=== PATIENT | female | born 1990 | race Caucasian/White ===

== ENCOUNTER 2019-09-12 09:57 | Observation (INO) | payer OTHER, SELFPAY ==
--- NOTE | ~2019-09-12 | US_ITS ---
US OB limited 09/12/2019 13:21 Indication: Vaginal bleeding Procedure: Real-time obstetrical ultrasound using transabdominal technique Comparison: No prior studies for comparison. Findings: There is a single living intrauterine in vertex presentation. Placenta is left-si ded. No evidence for previa. Amniotic fluid is subjectively normal. heart rate is 141 BPM. Impression: 1: Single living intrauterine with heart rate of 141 BPM. 2: Left-sided placenta. The placenta is grossly normal, without suggestion of placenta abruption. H owever, ultrasound is not diagnostic of abruption since acute hemorrhage can be isoechoic to be place nta. Recommend clinical correlation. Reviewed, dictated and finalized at location A. Impression: 1: Single living intrauterine with heart rate of 141 BPM. 2: Left-sided placenta. The placenta is grossly normal, without suggestion of placenta abruption. However, ultrasound is not diagnostic of abruption since a cute hemorrhage can be isoechoic to be placenta. Recommend clinical correlatio n.
[2019-09-12 11:37] LABS: Basophils Percent Auto 0.5 % (0.2-1.2); Eosinophils Absolute Auto 0.1 K/mm3 (0-0.3); Eosinophils Percent Auto 0.8 % (0-4.4); Hematocrit 36.9 % (37.0-47.0); Hemoglobin 12.3 g/dL (12.0-15.0); Immature Granulocyte Absolute 0.03 K/mm3 (0.00-0.031); Immature Granulocyte Percent A 0.5 % (0-0.5); Immature Platelet Fraction Pct 17.1 % (0.9-11.2); Lymphocytes Absolute Auto 1.36 K/mm3 (0.9-3.2); Lymphocytes Percent Auto 21.8 % (18.3-44.2); Mean Corpuscular HGB Conc 33.3 g/dl (32-36); Mean Corpuscular Hemoglobin 31.5 pg (26-34); Mean Corpuscular Volume 94.6 fl (80-100); Mean Platelet Volume 13.3 fl (7.4-10.4); Monocytes Absolute Auto 0.5 K/mm3 (0.1-0.6); Monocytes Percent Auto 7.5 % (2.6-8.5); Neutrophils Absolute Auto 4.3 K/mm3 (1.3-6.7); Neutrophils Percent Auto 68.9 % (45.5-73.1); Platelet Count Result 83 k/mm3 (150-375); Red Cell Distribution Width 12.7 % (11.5-14.5); White Blood Count 6.2 K/mm3 (4.5-10.0)
[2019-09-12 11:40] VITALS: BMI 32.8
[2019-09-12 11:51] LABS: Alanine Aminotransferase 10 U/L (4-35); Albumin Level 3.1 g/dL (3.5-5.1); Alkaline Phosphatase 117 U/L (38-126); Aspartate Amino Transferase 19 U/L (14-36); Bilirubin,Total 0.5 mg/dL (0.2-1.3); Blood Urea Nitrogen 6 mg/dL (7-17); Carbon Dioxide 25 mmol/L (22-30); Chloride 106 mmol/L (98-107); Estimated CRCL calculation 125 ml/min; Estimated Glomerular Filt Rate > 60; Glucose 74 mg/dL (65-105); Potassium 4.4 mmol/L (3.4-5.0); Sodium 134 mmol/L (137-145); Uric Acid 3.6 mg/dL (2.5-7.5)
--- NOTE | 2019-09-12 13:11 | PC.NURSE ---
Pt taken to u/s per wheelchair
[2019-09-12 14:14] VITALS: BP 111/72; PULSE 74
[2019-09-12 14:30] VITALS: TEMP 37.6
[2019-09-12 15:00] VITALS: BP 104/50; PULSE 80
[2019-09-12 16:00] VITALS: BP 106/66; PULSE 100
[2019-09-12 16:02] VITALS: TEMP 37.1
--- NOTE | 2019-10-16 07:55 | PM.OBTRLD ---
OB - Triage/Final Diagnosis Evaluation Laboratory results: Laboratory Tests 09/12/19 09/12/19 11:30 11:30 WBC 6.2 RBC 3.90 L Hgb 12.3 Hct 36.9 L MCV 94.6 MCH 31.5 MCHC 33.3 RDW 12.7 Plt Count 83 L MPV 13.3 H Immature Gran % (Auto) 0.5 Neut % (Auto) 68.9 Lymph % (Auto) 21.8 [place] % (Auto) 7.5 Eos % (Auto) 0.8 Baso % (Auto) 0.5 Lymph # (Auto) 1.36 [place] # (Auto) 0.5 Eos # (Auto) 0.1 Baso # (Auto) 0.0 Abs Immat Gran (auto) 0.03 Absolute Neuts (auto) 4.3 Absolute Nucleated RBC 0.0 Nucleated RBC % 0.0 % Immature Plt Fraction 17.1 H Sodium 134 L Potassium 4.4 Chloride 106 Carbon Dioxide 25 BUN 6 L Creatinine 0.70 Estim Creat Clear Calc 125 Estimated GFR > 60 Glucose 74 Uric Acid 3.6 Calcium 9.0 Total Bilirubin 0.5 AST 19 ALT 10 Alkaline Phosphatase 117 Total Protein 6.0 L Albumin 3.1 L Final Diagnosis (1) Bleeding in early : Code(s): O20.9 - Hemorrhage in early , unspecified Status: Acute
== END 2019-09-12 16:15 | disposition home or self-care (01) ==
PROVIDERS: Advanced Practice Midwife; Admitting Provider Obstetrics & Gynecology; PCP Obstetrics & Gynecology; Visit Provider Obstetrics & Gynecology
DX: O46.93 Antepartum hemorrhage, unspecified, third trimester (principal); Z3A.36 36 weeks gestation of pregnancy
CPT/HCPCS: 36415; 76815; 80053; 84550; 85025; 85055; G0378; G0379

== ENCOUNTER 2020-12-24 15:58 | Outpatient (CLI) | payer OTHER, SELFPAY ==
[2020-12-24 16:22] LABS: Basophils Percent Auto 0.7 % (0.2-1.2); Eosinophils Absolute Auto 0.1 K/mm3 (0-0.3); Eosinophils Percent Auto 1.8 % (0-4.4); Hematocrit 47.6 % (37.0-47.0); Hemoglobin 15.5 g/dL (12.0-15.0); Immature Granulocyte Absolute 0.01 K/mm3 (0.00-0.031); Immature Granulocyte Percent A 0.2 % (0-0.5); Lymphocytes Absolute Auto 2.05 K/mm3 (0.9-3.2); Mean Corpuscular HGB Conc 32.6 g/dl (32-36); Mean Corpuscular Hemoglobin 29.8 pg (26-34); Mean Corpuscular Volume 91.4 fl (80-100); Mean Platelet Volume 12.3 fl (7.4-10.4); Monocytes Absolute Auto 0.4 K/mm3 (0.1-0.6); Neutrophils Absolute Auto 3.4 K/mm3 (1.3-6.7); Neutrophils Percent Auto 56.3 % (45.5-73.1); Platelet Count Result 153 k/mm3 (150-375); Red Blood Count 5.21 M/mm3 (4.2-5.4); Red Cell Distribution Width 12.2 % (11.5-14.5)
[2020-12-24 17:49] LABS: Iron 110 ug/dL (37-170)
[2020-12-24 17:51] LABS: Alanine Aminotransferase 27 U/L (4-35); Albumin Level 4.7 g/dL (3.5-5.1); Alkaline Phosphatase 101 U/L (38-126); Anion Gap 11 mmol/L (8-16); Aspartate Amino Transferase 28 U/L (14-36); Bilirubin,Total 0.5 mg/dL (0.2-1.3); Blood Urea Nitrogen 12 mg/dL (7-17); Calcium 10.2 mg/dL (8.4-10.2); Carbon Dioxide 24 mmol/L (22-30); Chloride 104 mmol/L (98-107); Estimated Glomerular Filt Rate > 60; Glucose 94 mg/dL (65-105); Potassium 4.7 mmol/L (3.4-5.0); Sodium 139 mmol/L (137-145)
[2020-12-24 17:59] LABS: Percent Iron Saturation 32 % (20-50)
[2020-12-24 18:57] LABS: Folic Acid 19.9 ng/mL (2.76->20)
[2020-12-29 21:16] LABS: Platelet Ab,Indirect (IgA) NEGATIVE (NEGATIVE); Platelet Ab,Indirect (IgG) NEGATIVE (NEGATIVE); Platelet Ab,Indirect (IgM) NEGATIVE (NEGATIVE)
== END 2020-12-24 15:59 | disposition home or self-care (01) ==
LOC: ANHLAB 16:04
PROVIDERS: PCP Obstetrics & Gynecology; Visit Provider Internal Medicine Hematology & Oncology
DX: D69.59 Other secondary thrombocytopenia (principal)
CPT/HCPCS: 36415; 80053; 82607; 82728; 82746; 83540; 83550; 85025; 86022

== ENCOUNTER 2021-01-02 11:12 | Outpatient (CLI) | payer OTHER, SELFPAY ==
--- NOTE | ~2021-01-02 | US_ITS ---
EXAMINATION: US abdomen complete DATE: 01/02/2021 11:40 INDICATION: Secondary thrombocytopenia. TECHNIQUE: Multiple grayscale and Doppler ultrasound images of the abdomen were obtained. COMPARISON: None FINDINGS: Abdominal aorta is normal in caliber. Inferior vena cava is normal. The visualized portions of the head and body of the pancreas are normal. The liver is normal without focal lesion. There is normal flow in main portal vein. The gallbladder is normal in size. No gallstones or gallbladder wall thickening. There was no sonographic Trinh sign. The common duct measures 7 mm. The kidneys are nor mal in size. The spleen is normal in size and measures 11.8 cm. IMPRESSION: 1. Normal spleen. 2. Borderline dilated common duct. Reviewed, dictated and finalized at location A.
== END 2021-01-02 11:13 ==
PROVIDERS: PCP Family Medicine; Visit Provider Internal Medicine Hematology & Oncology
DX: D69.59 Other secondary thrombocytopenia (principal)
CPT/HCPCS: 76700

== ENCOUNTER 2025-05-21 16:26 | Emergency (ER) | payer OTHER, SELFPAY ==
[2025-05-21 16:36] VITALS: BP 108/69; PULSE 92; RESP 20; TEMP 36.6; O2SAT 97
[2025-05-21 19:01] VITALS: BP 103/68; PULSE 70; RESP 18; TEMP 36.6; O2SAT 98
--- OUTSIDE RECORDS SUMMARY | 2025-05-22 02:28 | XMS_ITS | Continuity of Care Document ---
Author Organization [facility] Address [address] [place] [address] [place] [address] Care Team Providers Care Beam Dyer Recessed Vat Name Role Phone ERNSTTOD ROSE Primary Care Provider Assessment No assessment recorded. Plan of Treatment Reminders Order Date Submit Date Provider Last Modified By Organization Details Last Modified Time Details Appointments None recorded. Lab None recorded. Referral None recorded. Procedures None recorded. Surgeries None recorded. Imaging US, obstetric, nuchal translucenc y [address] [place] [address], [address], [address], [place], [address], 13:55:25 Medication Orders None recorded. Patient TargetsNo targets recorded. Patient InstructionsNo instructions recorded. Reason for Referral None Reported. Results Created Date Observation Date Name Description Value Unit Range Abnormal Flag Note LastModifiedBy Organization Detail LastModifiedTime 03/16/2003/16/2025 CULTU RE: URINE result report SEE RESULT S BELOW Test: Cultu re: Urine Speci men Sourc e: Urine - Clean Catch Speci men Type: Urine Speci men Date: 2024 1002 Resul t Date: 2024 2254 Resul t Statu s: Final resul t Abnor mal: No Resul ting Lab: [facility] [address] [facility] [address] Tel: [phone] CULTU RE ----- ----- ----- --- No growt h in 1 day (dete ction level of 10,00 0 colon ies / ml.) Not Available [facility] (Lab) [address], [place], [address], 03/17/2025 23:58:41 03/16/20 25 03/16/2025 drug scree n, urine Amphetamines : negati ve Not Available [place] [address], [place], [address], 03/16/2025 10:41:30 03/16/20 25 03/16/2025 drug scree n, urine Cannabinoids : negati ve Not Available [place] [address], [place], [address], 03/16/2025 10:41:30 03/16/20 25 03/16/2025 drug scree n, urine Cocaine: negati ve Not Available [place] [address], [place], [address], 03/16/2025 10:41:30 03/16/20 25 03/16/2025 drug scree n, urine Opiates: negati ve Not Available [place] [address], [place], [address], 03/16/2025 10:41:30 03/16/20 25 03/16/2025 drug scree n, urine Phenocyclidi ne: negati ve Not Available [place] [address], [place], [address], 03/16/2025 10:41:30 03/16/20 25 03/16/2025 drug scree n, urine Barbiturates : negati ve Not Available [place] [address], [place], [address], 03/16/2025 10:41:30 03/16/20 25 03/16/2025 drug scree n, urine Benzodiazepi mauricio: negati ve Not Available [place] [address], [place], [address], 03/16/2025 10:41:30 03/16/20 25 03/16/2025 drug scree n, urine Ethanol: negati ve Not Available [place] [address], [place], [address], 03/16/2025 10:41:30 03/16/20 25 03/16/2025 drug scree n, urine Hallucinogen s: negati ve Not Available [place] [address], [place], [address], 03/16/2025 10:41:30 03/16/20 25 03/16/2025 drug scree n, urine Inhalants: negati ve Not Available [place] [address], [place], [address], 03/16/2025 10:41:30 03/16/20 25 03/16/2025 drug scree n, urine Anabolic Steroids: negati ve Not Available [place] [address], [place], [address], 03/16/2025 10:41:30 03/16/20 25 03/16/2025 US, obste tric, nucha l trans lucen cy No observ ation record ed. [facility] [address], [place], [address], 03/16/2025 17:07:46 03/16/2003/16/2025 US, obste tric, nucha l trans lucen cy No observ ation record ed. [email or web address] Fre[address], [place], [address], 03/16/2025 13:53:28 Result Notes None recorded. Problems Name Problem SNOMED Code Status Onset Date Resolution Date Notes Provider Name and Address Organization Details Recorded Time Abnormal transluc ency [id number] Completed thickene d 4mm, [facility] 05/09 - LII U/S, MFM & genetic counseli ng - rec echo, rpt u/s, and discusse d NIPS. declined [facility] and amnio Level II u/s & office visit 05/28 - [facility] to schedule echo at 05/28 appt Tereza newberry [facility] 2 16:03:19 Benign gestatio nal thromboc ytopenia 964161635 Completed h/o last pregnanc y - MFM 05/28/21 . Check monthly - last done 06/23 Tereza newberry [facility] [address] 16:03:[address] Concept Completed 201504/04/2021 Encntr for head custodian exam (general ) (routine ) w/o abn findings ;Recorde d Elsewher e: No Locat ion: [facility] S ource: EHR Community Health Planning Director tavon: N Maikel ce ID: 0001 Jimy lable Time: 01:00:00 PM Erika newberry [facility] 1 09:36:46 Uses combined oral contrace ption 318926375 Completed 201504/04/2021 Encounte r for initial prescrip tion of contrace ptive pills;Re corded Elsewher e: No [facility]at [facility]: EHR Community Health Planning Director tavon: N Maikel ce ID: 0001 Jimy lable Time: 01:00:00 PM Erika newberry [facility] 1 09:36:43 Syphilis test finding 139309992 Completed 201504/04/2021 Encntr screen for infectio ns w sexl mode of transmis s;Record ed Elsewher e: No Locat ion: [facility] S ource: EHR Community Health Planning Director tavon: N Maikel ce ID: 0001 Jimy lable Time: 01:00:00 PM Erika Salguero [facility] 09:38:47 Infectio n screenin g Completed 201504/04/2021 Encounte r for screenin g for oth infec/pa rastc diseases ;Recorde d Elsewher e: No Locat ion: [facility] S ource: EHR Community Health Planning Director tavon: N Nadineti ce ID: 0001 Jimy lable Time: 01:00:00 PM Erika newberry [facility] 09:36:42 Screenin g for malignan t neoplasm of cervix Completed 201504/04/2021 Screenin g for malignan t neoplasm s of the cervix;R ecorded Elsewher e: No Locat ion: [facility] S ource: EHR Community Health Planning Director tavon: N Nadineti ce ID: 0001 Jimy lable Time: 01:00:00 PM Erika newberry [facility] 09:36:37 Body mass index 25-29 - overweig 373236303 Completed 201504/04/2021 Body mass index (BMI) 29.0-29. 9, adult;Re corded Elsewher e: No Locat ion: [facility] S ource: EHR Community Health Planning Director tavon: N Nadineti ce ID: 0001 Jimy lable Time: 01:00:00 PM Erika newberry [facility] 09:36:35 Dyspareu amaya [id number] Completed 201504/04/2021 Dyspareu amaya;Ag rded Elsewher e: No Locat ion: [facility] S ource: EHR Community Health Planning Director tavon: N Nadineti ce ID: 0001 Jimy lable Time: 10:15:00 AM Erika newberry [facility] 09:38:56 Procedur e by method Completed 201604/04/2021 Encounte r for other general counseli ng and advice on contrace ption;Re corded Elsewher e: No Locat ion: [facility] S ource: EHR Community Health Planning Director tavon: N Nadineti ce ID: 0001 Jimy lable Time: 01:15:00 PM Erika newberry [facility] 09:36:[address] Concept Completed 201604/04/2021 Encntr for general adult medical exam w/o abnormal findings ;Recorde d Elsewher e: No Locat ion: [facility] S ource: EHR Community Health Planning Director tavon: N Practi ce ID: 0001 Jimy lable Time: 01:15:00 PM Erika newberry [facility] 09:36:45 Procedur e Completed 201704/04/2021 Enctr srvlnc implanta ble subderma l contrace ptive;Pr actice ID: [address] [facility], [facility] 09:36:[address] Concept Completed 201704/04/2021 Encounte r for surveill ance of other contrace ptives;R ecorded Elsewher e: No Locat ion: [facility] S ource: EHR Community Health Planning Director tavon: N Nadineti ce ID: 0001 Jimy lable Time: 01:00:00 PM Erika newberry [facility] 09:37:04 Pregnanc y detectio n examinat ion Completed 201804/04/2021 Encounte r for pregnanc y test, result positive ;Recorde d Elsewher e: No Locat ion: [facility] S ource: EHR Community Health Planning Director tavon: N Practi ce ID: 0001 Jimy lable Time: 03:30:00 PM Erika newberry [facility] 09:38:59 Gestatio n period, 10 weeks [id number] Completed 201804/04/2021 10 weeks gestatio n of pregnanc y;Record ed Elsewher e: No Locat ion: [facility] S ource: EHR Community Health Planning Director tavon: N Practi ce ID: 0001 Jimy lable Time: 03:30:00 PM Erika newberry [facility] 09:37:11 Antenata l screenin g Completed 201804/04/2021 Encounte r for other specifie d antenata l screenin g;Record ed Elsewher e: No Locat ion: [facility] S ource: EHR Community Health Planning Director tavon: N Practi ce ID: 0001 Jimy lable Time: 05:00:00 PM Erika newberry [facility] 09:36:40 Pregnanc y, childbir th and puerperi um finding Completed 201804/04/2021 Encntr for suprvsn of normal first preg, second trimeste r;Practi ce ID: 0001 Erika newberry, [facility] 09:37:07 Pregnanc y, childbir th and puerperi um finding Completed 201804/04/2021 Encounte r for supervis ion of normal 1st pregnanc y;Record ed Elsewher e: No Locat ion: [facility] S ource: EHR Community Health Planning Director tavon: N Nadineti ce ID: 0001 Jimy lable Time: 05:00:00 PM Erika newberry, [facility] 1 09:37:05 Antenata l screenin g for malforma tion Completed 201804/04/2021 Encounte r for antenata l screenin g for malforma tions;Re corded Elsewher e: No Locat ion: [facility] S ource: EHR Community Health Planning Director tavon: N Practi ce ID: 0001 Jimy lable Time: 04:00:00 PM Erika newberry [facility] 09:38:58 Pregnanc y, childbir th and puerperi um finding Completed 201904/04/2021 Encntr for suprvsn of normal first preg, third trimeste r;Record ed Elsewher e: No Locat ion: [facility] S ource: EHR Community Health Planning Director tavon: N Practi ce ID: 0001 Jimy lable Time: 02:30:00 PM Erika newberry, [facility] 09:37:09 Normal pregnanc y in multigra kim [id number] 11590 Completed 201904/04/2021 Encounte r for suprvsn of normal pregnanc y, third trimeste r;Practi ce ID: 0001 Erika Jose M newberry, [facility] 09:38:53 Finding of trunk structur e Completed 201904/04/2021 Oth diseases and conditio ns compl preg/chl dbrth;Pr actice ID: 0001 Erika newberry, [facility] 09:36:39 Gestatio n period, 37 weeks 21533881 Completed 201904/04/2021 37 weeks gestatio n of pregnanc y;Practi ce ID: 0001 Erika Kirkmandavid newberry, [facility] 09:38:50 Pregnanc y 93614783 Completed 202011/04/2021 Donna newberry, [facility] 5 10:25:05 Pregnanc y 10461087 Active 2024 Donna newberry [facility] 5 10:25:05 Immune thromboc ytopenia 4933198 Active 2024 Plt 129 at 10 weeks JERED LERMA MD [address], [place], [address], [facility] 5 10:54:27 Notes:Hx gestational thrombo cytopenia. MFM U/S & OV 05/28 Problem Notes None recorded. Procedures Surgical History Date Name Laterality Status Provider Name and Address Organization Details Recorded Time 04/07/20 21 Date of Last Pap Smear completed Rosa Deleon [facility] 02/14/2025 12:41:37 07/05/19 07 extraction of wisdom tooth completed Hilda Keyes [facility] 05/08/2022 10:19:08 07/05/19 02 adenomyomectomy completed Hilda Keyes [facility] 05/08/2022 10:18:57 Imaging Results None recorded. Procedure Notes None recorded. Medical Equipment None Reported. Allergies Allergen ID Allergen Name Allergen Category Reaction Reaction Severity Criticality Documentation Date Start Date Code Code System Note Provider Name and Address Organization Details Recorded Time 508 amoxicill in medicatio n hives Not available Not available 11/10/2019 723 [address] [facility] 0 12:44:51 509 codeine medicatio n hives Not available Not available 11/10/2019 2670 RxNorm Elisa Gold [facility] 0 12:45:06 Medications Name Sig Start Date Stop Date Status Note LastModified by Organization Details LastModified Time fluconazo le 150 mg tablet TAKE 1 TABLET BY MOUTH 1 TIME FOR 1 DOSE 12/10 completed Not Available Not Available Not Available prednison e 20 mg tablet TAKE 4 TABLETS BY MOUTH ONCE DAILY FOR 7 DAYS THEN TAKE 1 TABLET BY MOUTH EVERY DAY FOR 21 DAYS 12/10 completed Not Available Not Available Not Available amoxicill in 500 mg tablet take 1 tablet by oral route 3 times every day for 10 days 04/09 completed Prescrib gisselle Bañuelos e: No Locat ion: [facility] Vicki odify By: jlgreen Mane bermudez DateTime : 03/31/20 11:32:37 AM Not Available Not Available Not Available docusate sodium 100 mg capsule TAKE ONE CAPSULE BY MOUTH TWICE DAILY NEEDED FOR CONSTIPA TION 12/10 completed Not Available Not Available Not Available ibuprofen 600 mg tablet TAKE 1 TABLET BY MOUTH EVERY 6 HOURS NEEDED FOR PAIN 12/10 completed Not Available Not Available Not Available NuvaRing 0.12 mg-0.015 mg/24 hr vaginal Insert 1 vaginal ring every month by vaginal route. 05/08 completed Not Available Not Available Not Available active Not Available Not Avai lable Not Available 1 mg-20 mcg (24)/75 mg (4) tablet take 1 tablet by oral route every day 04/08 completed Prescrib ed Elsewher e: No Locat ion: [facility] odify By: sandra bermudez DateTime : 03/25/20 16 01:45:00 PM Not Available Not Available Not Available 28 mg-800 mcg tablet 04/04 completed Prescrib ed Elsewher e: Yes Loca tion: [facility] odify By: janet Wiley er DateTime : 05/25/20 19 05:00:00 PM Not Available Not Available Not Available COVID-19 test specimen collectio n TEST DIRECTED TODAY 06/23 completed Not Available Not Available Not Available Vitals Date Recorded Body height Body mass index (BMI) Body weight Systolic And Diastolic Provider Name and Address Organization Details Last Updated DateTime 03/16/2025 172.72 cm 30.4 kg/m2 24335.47 g 113/65 mm[Hg] Donna Gay [facility] 03/16/2025 10:24:42 Social History Question Answer Notes LastModified by Organizat ion Details LastModified Time Tobacco Smoking Status Never Smoker Marissa newberry [facility] 06/09/2023 15:00:53 If You Are , What Was Your Level Of Alcohol Consumption Prior To ? Occasional [email or web address] Information not available 06/09/2023 Are You Blind Or Do You Have Difficulty Seeing? No [email or web address] Information n ot available 04/07/2021 What Is Your Level Of Caffeine Consumption? Occasional [email or web address] Information not available 12/10/2021 In The 14 Days Before Symptom Onset, Have You Had Close Contact With A Laboratory-confirm ed COVID-19 While That Case Was Ill? No Information n ot available 12/10/2021 In The 14 Days Before Symptom Onset, Have You Had Close Contact With A Person Who Is Under Investigation For COVID-19 While That Person Was Ill? No [email or web address] Information not available 12/10/2021 Have You Been To An Area Known To Be High Risk For COVID-19? No [email or web address] Information not available 04/07/2021 Are You Deaf Or Do You Have Serious Difficulty Hearing? No [email or web address] Information not available 04/07/2021 What Type Of Diet Are You Following? REGULAR [email or web address] Information n ot available 12/10/2021 What Is The Highest Grade Or Level Of School You Have Completed Or The Highest Degree You Have Received? [id number] [email or web address] Information not available 04/07/2021 Have You Ever Been Counseled For Unhealthy Alcohol Use? No [email or web address] Information not available 06/09/2023 Do You Use Protection During Sex? No [email or web address] Information not available 02/14/2025 Do You Use Your Seat Belt Or Car Seat Routinely? Yes [email or web address] Information not available 04/07/2021 Do You Have Smoke And Carbon Monoxide Detectors In Your Home? Yes Information not available 04/07/2021 How Much Tobacco Do You Smoke? No [email or web address] Information not available 04/07/2021 Do You Use Sunscreen Routinely? Yes [email or web address] Information not available 04/07/2021 Has Tobacco Cessation Counseling Been Provided? No [email or web address] Information not available 06/09/2023 Have You Used IV Drugs? No Information not available 04/07/2021 Do You Have Difficulty Walking Or Climbing Stairs? No [email or web address] Information not available 06/09/2023 Sex: Unknown Functional Status Question Answer Note LastModified by Organizat ion Details LastModified Time Do you use any illicit or recreational drugs? No Information not available 04/07/2021 Do you or have you ever used any other forms of tobacco or nicotine? No [email or web address] Information not available 06/09/2023 What is your level of alcohol consumption? Occasional [email or web address] Information not available 12/10/2021 Are you able to walk independently without assistance or assistive devices? [email or web address] Information not available 04/07/2021 Are you able to care for yourself independently? 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 No [email or web address] Information not available 06/09/2023 What is your exercise level? Moderate [id number] Information not available 05/07/2020 Mental Status Question Answer Note LastModified by Organization D etails LastModified Time Do you feel stressed (tense, restless, nervous, or anxious, or unable to sleep at night)? [id number] [email or web address] Information not available 12/10/2021 Family History Relationship Description Onset Age of this Age Resolved Age Notes LastModified by Organization Details LastModified Time Maternal Grandmother Family history of malignant neoplasm of lung jgumber Not available 2019 12:43:01 Maternal Grandfather Family history of malignant neoplasm of lung jgumber Not available 2019 12:43:01 Father Malignant melanoma [email or web address] Not available 2019 12:43:29 Paternal Grandfather Malignant melanoma jgumber Not available 2019 12:43:29 Paternal Grandfather Family history of cancer of colon jgumber Not available 2019 12:43:51 Paternal Grandfather Malignant neoplasm of prostate 70 [email or web address] Not available 05/20 20:17:33 Medical History Condition Response Allergies (Food, seasonal, environmental ) N Other Y Breast Cancer N Drug/Latex Allergies/Reactions N Blood Transfusion N Dermatologic Disorders N Lung Disease N Defects or Inherited Disease N Breast Problem N Gestational Diabetes N Hematologic disorders N Anesthesia Complications N History of STI Y Deep Vein Thrombosis N Polycystic ovary syndrome N Anxiety Disorder N Autoimmune disease N Arthritis N Infertility N Polyps N Acid Reflux (GERD) N History of abnormal pap N Cancer N Stroke N Varicosities N Neurologic/Epilepsy N Endometriosis N High Cholesterol N Headaches N Fibromyalgia N Kidney Disease N Heart Problems N Kidney or Bladder Problems N Thyroid Problems N GI Problems N Eating Disorder N Anemia N Art (IVF or FET) N Psychiatric Illness N Ovarian Cancer N Diabetes N Pulmonary (TB, Asthma) N Hepatitis/Liver Disease N No Past Medical History N Eczema N Urinary Tract Infection N Abuse/Domestic Violence N Asthma N Trauma/Violence N Depression/ depression N Heart Disease N Pre-Eclampsia N Hypertension N Osteoporosis N Thrombophilias Y Gynecological History Statement/Question Response Abnormal Pap N Flow Moderate Date of Last Mammogram Date of LMP 12/22/2024 On BCP's at Conception? N STIs/STDs Yes Was last menstrual period normal Y HPV Vaccine Y Duration of Flow (days) 4 Current Control Method Age at First Child 28 Are cycles usually normal Y Frequency of Cycle (Q days) 27 Sexually Active? Y Menses Monthly Y Date of DEXA bone scan Age of first menstrual cycle 13 Date of Last Pap Smear 04/07/2021 Sexual Problems? N LMP Approximate Desired Control Method None Obstetrics History GPAL:G 3 P 2 0 0 2 Type Value Full Term 2 Living 2 Total 3 Past Encounters Encounter ID Performer Location Encounter Start Date Encounter Closed Date Diagnosis/Indication Diagnosis SNOMED-CT Code Diagnosis ICD10 Code Diagnosis IMO Codes Diagnosis Note [id number] JERED LERMA MD [place] [address],[place] [address] 02/14/2025 11:49:35 02/14/2025 12:17:36 [id number] JERED LERMA MD [place] [address],[place] [address] 02/14/2025 11:50:08 02/14/2025 13:06:43 test positive 433757670 Z32.01 [id number] 1. Exam today within normal limits.2. Ultrasound today confirms GA and viability. EDC . GC/Clamydi a testing done: will f/u as indicated. 4. ACOG guidelines and plan of care for reviewed with patient. All questions answered.5 . Return to office at 12 weeks for new OB visit6. Will need new OB labs at next visit.7. Genetic screening: desires at 10 weeks. screening 8132 08449 Z36.89 Genetic in vestigation procedure 66361574 Z31.430 [id number] JERED LERMA MD [place] [address] [address] 03/16/2025 09:48:15 03/16/2025 10:27:10 screening 445961006 Z36.82 Z3A.12 776766 [id number] JERED LERMA MD [place] [address] [address] 03/16/2025 09:50:10 03/16/2025 11:55:25 Gestation period, 12 weeks 28888489 Z3A.12 7906349 Immune thrombocytopenia 7956631 D69.3 229379 - Plt 129 at 10 weeks- MFM consult Health Concerns Section Related Observation LastModified by Organization Detai ls LastModified Time None Recorded Concern Status LastModified by Organization Details LastModified Time None Recorded Payers Encounter Date Sequence Insurance Name Policy Number Policy Bowman Covered Member ID Bowman Member ID Guarantor Name 03/16/2025 1 IDALIA [id number] Wilber Aranda [id number] 2 Paz Aranda OBGyn Episode Ob Episode Information Episode Created Date Number of Fetuses Patient Bloodtype Patient rh Status Prepregnancy Weight lbs Domestic Partner Domestic Partner Phone Father Name [employer] Architect Status 03/16/20 25 1 A Positive Wilber TESFAYE Fetus Data First Name Last Name Admitted to NICU Weight (g) Sex Living Outcome Pediatric Complications Fetus ID Race Codes Race Delivery Type [id number] Problems Problem Notes Problem Name Start Date End Date Resolution Snomed Code Not e Immune thrombocytopenia 03/16/2025 84491 05 Plt 129 at 10 weeks Brain Calculation Initial Brain Date Initial Exam Date Initial Exam Provider Initial Ultrasound Date Last Menstrual Period Date Ultra Sound Weeks Gestation 09/29/2025 03/16/2025 02/14/2025 12/22/2024 7 Eighteen To Twenty Week Brain Update Ultra Sound Date Fundal Height At Umbil Quickening Date Ultra Sound Latest Weeks Gestation Final Brain Confirmed By Final Brain Confirmed Date Final Brain Date Ultra Sound Latest Days Gestation 0 0 Pre-placido Flowsheet Flowsheet Date 03/16/2025 Quiroz Score Blood Edema Fundus Height Fundus Units Glucose Ketones Leukocytes Nitrite Labor Signs Protein Cervic Dilation Cervic Effacement Cervic Station Type Weight in lbs Pre/Post Dialysis Refused Weight 200.256234893947 BP Diastolic BP Location Tested BP Systolic BP Type 65 L arm 113 sitting Fetus Heart Rate Present A 173 Fetus Movement A No Comments Patient presents to [facility] care. Hx of ITP, will send MFM consult. Plt 129 at 10 weeks. otherwise uncomplicated. No bleeding or cramping. Mild nausea. NT/NB wnl today, NIPT LR. New OB labs normal aside from thrombocytopenia. RTC 4 weeks for routine care. Flowsheet Date 04/17/2025 Quiroz Score Blood Edema Fundus Height Fundus Units Glucose Ketones Leukocytes Nitrite Labor Signs Protein Cervic Dilation Cervic Effacement Cervic Station Type Weight in lbs Pre/Post Dialysis Refused Weight [id number] BP Diastolic BP Location Tested BP Systolic BP Type 68 L arm 114 sitting Fetus Heart Rate Present A 160 Fetus Movement A Yes Comments Doing well, having some dysu petros. Will send urine culture. Patient was seen by MFM at [facility], will plan to deliver there due to ITP. Will transfer all care to [facility]. RTC if needed. Menstrual History Last Menstrual Date Menses Monthly On Bcp Conception Prior Menses Frequency Hcg Plus Date Menarche Onset Age 0612/22/2024 true Genetic Screening And Infection History Question Response Note Mental Retardation/Autism false Patient's Age Will Be 35 Years Or Older At Estim ated Date of Delivery true Thalassemia (Sao Tomean, Montenegrin, Mediterranean, Or Background): MCV < 80 false Neural Tube Defect (Meningomyelocele, Spina Bifi da, Or Anencephaly) false Congenital Heart Defect false Down Syndrome false Quinten-Sachs (eg, Alevism, Cajun, Japanese-Emmett) f alse Payam Disease false Sickle Cell Disease Or Trait () false Hemophilia Or Other Blood Disorders false Muscular Dystrophy false Cystic Fibrosis false Mell's Chorea false Intellectual Disability/Autism false If Yes, Was Person Tested For Fragile X? false Other Inherited Genetic Or Chromosomal Disorder false Maternal Metabolic Disorder (eg, Type 1 Diabetes , PKU) false Patient Or Baby's Father Had A Child With Defects Not Listed Above false Recurrent Loss, Or A Stillbirth false Medications (including Suppl ements, Vitamins, Herbs, OTC Drugs), Illicit/Recreational Drugs, Alcohol false If Yes, Agent(s) And Strength/Dosage false Any Other Genetic History false Live With Someone With TB Or Exposed To TB false Patient Or Partner Has History Of Genital Herpes false Rash Or Viral Illness Since Last Menstrual Perio d false History Of STD, Gonorrhea, Chlamydia, HPV, Syphi lis false Other Infection History false History of HIV false History of Hepatitis false Prior GBS-infected child false Hemoglobinopathy Or Carrier false Other Structural Defect false Recent Travel History Outside of Country false Delivery Information Delivery Date Delivery Type Labor Anesthesia Weeks Gestation Incision Type Labor Labor Length Hrs Delivered By Post Complications Tubal Sterilization Discharge Date Comments Discharge Information Feeding Method Contraceptive Method Maternal HG B and HCT Levels
--- OUTSIDE RECORDS SUMMARY | 2025-05-22 02:28 | XMS_ITS | Continuity of Care Document ---
Author Organization [facility] Address [address] [place] [address] [place] [address] Care Team Providers Care Ampoule Sealer Name Role Phone EDISMARLENY TOD Primary Care Provider Assessment No assessment recorded. Plan of Treatment Reminders Order Date Submit Date Provider Last Modified By Organization Details Last Modified Time Details Appointments None recorded. Lab urinalysis , dipstick 2024 025 [id number] [facility] [address], [address], [place], [address], 14:43:42 culture, urine 2024 025 [facility] (Lab), [address], [place], [address], 5 22:46:08 Referral None recorded. Procedures None recorded. Surgeries None recorded. Imaging None recorded. Medication Orders None recorded. Patient TargetsNo targets [...] t Abnor mal: No Resul ting Lab: [facility] [address] [address] Tel: CULTU RE ----- ----- ----- --- No growt h in 1 day (dete ction level of 10,00 0 colon ies / ml.) Not Available [facility] (Lab) [address], [place], [address], 03/17/2025 23:58:41 03/16/2003/16/2025 drug scree n, urine Amphetamines : negati ve Not Available [facility] [address], [place], [address], 03/16/2025 10:41:30 03/16/20 25 03/16/2025 drug scree n, urine Cannabinoids : negati ve Not Available [facility] [address], [place], [address], 03/16/2025 10:41:30 03/16/20 25 03/16/2025 drug scree n, urine Cocaine: negati ve Not Available [facility] [address], [place], [address], 03/16/2025 10:41:30 03/16/20 25 03/16/2025 drug scree n, urine Opiates: negati ve Not Available [facility] [address], [place], [address], 03/16/2025 10:41:30 03/16/20 25 03/16/2025 drug scree n, urine Phenocyclidi ne: negati ve Not Available [facility] [address], [place], [address], 03/16/2025 10:41:30 03/16/20 25 03/16/2025 drug scree n, urine Barbiturates : negati ve Not Available [facility] [address], [place], [address], 03/16/2025 10:41:30 03/16/20 25 03/16/2025 drug scree n, urine Benzodiazepi mauricio: negati ve Not Available [facility] [address], [place], [address], 03/16/2025 10:41:30 03/16/20 25 03/16/2025 drug scree n, urine Ethanol: negati ve Not Available [facility] [address], [place], [address], 03/16/2025 10:41:30 03/16/20 25 03/16/2025 drug scree n, urine Hallucinogen s: negati ve Not Available [facility] [address], [place], [address], 03/16/2025 10:41:30 03/16/20 25 03/16/2025 drug scree n, urine Inhalants: negati ve Not Available [facility] [address], [place], [address], 03/16/2025 10:41:30 03/16/20 25 03/16/2025 drug scree n, urine Anabolic Steroids: negati ve Not Available [facility] [address], [place], [address], 03/16/2025 10:41:30 04/17/20 25 04/17/2025 CULTU RE: URINE result report SEE RESULT S BELOW Test: Cultu re: Urine Speci men Sourc e: Urine - Clean Catch Speci men Type: Urine Speci men Date: 04/17 1541 Resul t Date: 04/18 2143 Resul t Statu s: Final resul t Abnor mal: No Resul ting Lab: [facility] [address] [address] Tel: CULTU RE ----- ----- ----- --- No growt h in 1 day (dete ction level of 10,00 0 colon ies / ml.) Not Available [facility] (Lab) [address], [place], [address], 04/18/2025 22:46:08 04/17/2004/17/2025 urina lysis , dipst ick Leukocytes Trace Not Available [facility] [address], [place], [address], 04/17/2025 14:31:28 04/17/2004/17/2025 urina lysis , dipst ick Protein Trace Not Available [facility] [address], [place], [address], 04/17/2025 14:31:28 04/17/2004/17/2025 urina lysis , dipst ick pH 7 Not Available [facility] [address], [place], [address], 04/17/2025 14:31:28 04/17/20 25 04/17/2025 urina lysis , dipst ick Blood trace Not Available [facility] [address], [place], [address], 04/17/2025 14:31:28 04/17/2004/17/2025 urina lysis , dipst ick Specific Rupert 1.015 Not Available [facility] [address], [place], [address], 04/17/2025 14:31:28 04/17/2004/17/2025 urina lysis , dipst ick Appearance clear Not Available [facility] [address], [place], [address], 04/17/2025 14:31:28 04/17/20 25 04/17/2025 urina lysis , dipst ick Color yellow Not Available [facility] [address], [place], [address], 04/17/2025 14:31:28 03/16/20 25 03/16/2025 US, obste tric, nucha l trans lucen cy No observ ation record ed. [facility] [address], [place], [address], 03/16/2025 17:07:46 03/16/20 25 03/16/2025 US, obste tric, nucha l trans lucen cy No observ ation record ed. [email or web address], [place], [address], 03/16/2025 13:53:28 Result Notes None recorded. Problems Name Problem SNOMED Code Status Onset Date Resolution Date Notes Provider Name and Address Organization Details Recorded Time Abnormal transluc ency 91803504 Completed thickene d 4mm, M [place] 05/09 - LII U/S, MFM & genetic counseli ng - rec echo, rpt u/s, and discusse d NIPS. declined [facility] and amnio Level II u/s & office visit 05/28 - [facility] to schedule echo at 05/28 appt Tereza newberry [facility] 2 16:03:19 Benign gestatio nal thromboc ytopenia 818654614 Completed h/o last pregnanc y - MFM 05/28/21 . Check monthly - last done 06/23 Tereza newberry [facility] [address] 16:03:[address] Concept Completed 201504/04/2021 Encntr for rewinder operator exam (general ) (routine ) w/o abn findings ;Recorde d Elsewher e: No Locat ion: [facility] S ource: EHR Board Writer tavon: N Practi ce ID: 0001 Jimy lable Time: 01:00:00 PM Erika newberry [facility] 1 09:36:46 Uses combined oral contrace ption 927802038 Completed 201504/04/2021 Encounte r for initial prescrip tion of contrace ptive pills;Re corded Elsewher e: No [facility]: [facility] Board Writer tavon: N Practi ce ID: 0001 Jimy lable Time: 01:00:00 [facility] 09:36:43 Syphilis test finding 479891214 Completed 201504/04/2021 Encntr screen for infectio ns w sexl mode of transmis s;Record ed Elsewher e: No Locat ion: [facility] S ource: EHR Board Writer tavon: N Practi ce ID: 0001 Jimy lable Time: 01:00:00 PM Erika newberry, [facility] 1 09:38:47 Infectio n screenin g Completed 201504/04/2021 Encounte r for screenin g for oth infec/pa rastc diseases ;Recorde d Elsewher e: No Locat ion: [facility] S ource: EHR Board Writer tavon: N Practi ce ID: 0001 Jimy lable Time: 01:00:00 PM Erika newberry [facility] 1 09:36:42 Screenin g for malignan t neoplasm of cervix Completed 201504/04/2021 Screenin g for malignan t neoplasm s of the cervix;R ecorded Elsewher e: No Locat ion: [facility] S ource: EHR Board Writer tavon: N Practi ce ID: 0001 Jimy lable Time: 01:00:00 PM Erika newberry [facility] 1 09:36:37 Body mass index 25-29 - overweig ht 839305574 Completed 201504/04/2021 Body mass index (BMI) 29.0-29. 9, adult;Re corded Elsewher e: No [facility] S ource: EHR Board Writer tavon: N Nadineti ce ID: 0001 Jimy lable Time: 01:00:00 PM Erika newberry [facility] 09:36:35 Dyspareu amaya [id number] Completed 201504/04/2021 Dyspareu amaya;Ag rded Elsewher e: No Locat ion: [facility] S ource: EHR Board Writer tavon: N Practi ce ID: 0001 Jimy lable Time: 10:15:00 AM Erika newberry [facility] 09:38:56 Procedur e by method Completed 201604/04/2021 Encounte r for other general counseli ng and advice on contrace ption;Re corded Elsewher e: No Locat ion: [facility] S ource: EHR Board Writer tavon: N Nadineti ce ID: 0001 Jimy lable Time: 01:15:00 PM Erika newberry [facility] 09:36:[address] Concept Completed 201604/04/2021 Encntr for general adult medical exam w/o abnormal findings ;Recorde d Elsewher e: No Locat ion: [facility] S ource: EHR Board Writer tavon: N Practi ce ID: 0001 Jimy lable Time: 01:15:00 PM Erika newberry [facility] 09:36:45 Procedur e Completed 201704/04/2021 Enctr srvlnc implanta ble subderma l contrace ptive;Pr actice ID: 0001 Erika newberry, [facility] 09:36:[address] Concept Completed 201704/04/2021 Encounte r for surveill ance of other contrace ptives;R ecorded Elsewher e: No Locat ion: [facility] S ource: EHR Board Writer tavon: N Practi ce ID: 0001 Jimy lable Time: 01:00:00 PM Erika newberry, [facility] 09:37:04 Pregnanc y detectio n examinat ion Completed 201804/04/2021 Encounte r for pregnanc y test, result positive ;Recorde d Elsewher e: No Locat ion: [facility] S ource: EHR Board Writer tavon: N Practi ce ID: 0001 Jimy lable Time: 03:30:00 PM Erika newberry, [facility] 09:38:59 Gestatio n period, 10 weeks 47456337 Completed 201804/04/2021 10 weeks gestatio n of pregnanc y;Record ed Elsewher e: No Locat ion: [facility] S ource: EHR Board Writer tavon: N Practi ce ID: 0001 Jimy lable Time: 03:30:00 PM Erika newberry, [facility] 09:37:11 Antenata l screenin g Completed 201804/04/2021 Encounte r for other specifie d antenata l screenin g;Record ed Elsewher e: No Locat ion: [facility] S ource: EHR Board Writer tavon: N Practi ce ID: 0001 Jimy lable Time: 05:00:00 PM Erika newberry, [facility] 09:36:40 Pregnanc y, childbir th and puerperi um finding Completed 201804/04/2021 Encntr for suprvsn of normal first preg, second trimeste r;Practi ce ID: 0001 Erika newberry, [facility] 09:37:07 Pregnanc y, childbir th and puerperi um finding Completed 201804/04/2021 Encounte r for supervis ion of normal 1st pregnanc y;Record ed Elsewher e: No Locat ion: [facility] S ource: EHR Board Writer tavon: N Practi ce ID: 0001 Jimy lable Time: 05:00:00 PM Erika Salguero rohith, [facility] 09:37:05 Antenata l screenin g for malforma tion Completed 201804/04/2021 Encounte r for antenata l screenin g for malforma tions;Re corded Elsewher e: No Locat ion: [facility] S ource: EHR Board Writer tavon: N Practi ce ID: 0001 Jimy lable Time: 04:00:00 PM Erika Jose M rohith, [facility] 09:38:58 Pregnanc y, childbir th and puerperi um finding Completed 201904/04/2021 Encntr for suprvsn of normal first preg, third trimeste r;Record ed Elsewher e: No Locat ion: [facility] S ource: EHR Board Writer tavon: N Practi ce ID: 0001 Jimy lable Time: 02:30:00 PM Erika Jose M rohith, [facility] 09:37:09 Normal pregnanc y in multigra ikm [id number] 80060 Completed 201904/04/2021 Encounte r for suprvsn of normal pregnanc y, third trimeste r;Practi ce ID: 0001 Erika Jose M rohith, [facility] 09:38:53 Finding of trunk structur e Completed 201904/04/2021 Oth diseases and conditio ns compl preg/chl dbrth;Pr actice ID: 0001 Erika newberry, [facility] 09:36:39 Gestatio n period, 37 weeks 42246191 Completed 201904/04/2021 37 weeks gestatio n of pregnanc y;Practi ce ID: 0001 Erika Salguero [facility], [facility] 09:38:50 Pregnanc y 07605247 Completed 202011/04/2021 Donna Gay rohith, [facility] 5 10:25:05 Pregnanc y 12514241 Active 2024 Donna Gay [facility], [facility] 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 10:54:27 Notes:Hx gestational thrombo cytopenia. MFM U/S & OV 05/28 Problem Notes None recorded. Procedures Surgical History Date Name Laterality Status Provider Name and Address Organization Details Recorded Time 04/07/20 21 Date of Last Pap Smear completed Rosa Deleon [facility] 02/14/2025 12:41:37 07/05/19 07 extraction of wisdom tooth completed Hilda Keyes [facility] 05/08/2022 10:19:08 07/05/19 02 [facility] 10:18:57 Imaging Results None recorded. Procedure Notes None recorded. Medical Equipment None Reported. Allergies Allergen ID Allergen Name Allergen Category Reaction Reaction Severity Criticality Documentation Date Start Date Code Code System Note Provider Name and Address Organization Details Recorded Time 508 amoxicill in medicatio n hives Not available Not available 11/10/2019 723 RxNorm Elisa newberry, [facility] 0 12:44:51 509 codeine medicatio n hives Not available Not available 11/10/2019 2670 RxNorm Elisa Malcolm [place], [place] - [facility] 0 12:45:06 Medications Name Sig Start [...] day for 10 days 04/09 completed Prescrib ed Elsewher e: No Locat ion: [facility] odify By: naeem Gilliam r DateTime : 03/31/20 11:32:37 AM Not Available [...] Prescrib ed Elsewher e: No Locat ion: [facility] odify By: sandra Gilliam r DateTime : 03/25/20 16 01:45:00 PM Not Available Not Available Not Available 28 mg-800 mcg tablet 04/04 completed Prescrib ed Elsewher e: Yes Loca tion: [facility] odify By: [email or web address] Encount er DateTime : 05/25/20 19 05:00:00 PM Not Available Not Available Not Available COVID-19 test specimen collectio n TEST DIRECTED TODAY 06/23 completed Not Available Not Available Not Available Vitals Date Recorded Body height Body mass index (BMI) Body weight Systolic And Diastolic Provider Name and Address Organization Details Last Updated DateTime 04/17/2025 172.72 cm 31 kg/m2 83295.84 g 114/68 mm[Hg] Donna Gay [facility] 04/17/2025 14:10:23 Social History Question Answer Notes LastModified by Organizat ion Details LastModified Time Tobacco Smoking Status Never Smoker Marissa Marquez rohith, [facility] 06/09/2023 15:00:53 If You Are , What Was Your Level Of Alcohol Consumption Prior To ? Occasional [email or web address] Information not available 06/09/2023 Are You Blind Or Do You Have Difficulty Seeing? No [email or web address] Information n ot available 04/07/2021 What Is Your Level Of Caffeine Consumption? Occasional [email or web address] Information not available 12/10/2021 In The 14 Days Before Symptom Onset, Have You Had Close Contact With A Laboratory-confirm ed COVID-19 While That Case Was Ill? No Information n ot available 12/10/2021 In The 14 Days Before Symptom Onset, Have You Had Close Contact With A Person Who Is Under Investigation For COVID-19 While That Person Was Ill? No Information not available 12/10/2021 Have You Been To An Area Known To Be High Risk For COVID-19? No [email or web address] Information not available 04/07/2021 Are You Deaf Or Do You Have Serious Difficulty Hearing? No [email or web address] Information not available 04/07/2021 What Type Of Diet Are You Following? REGULAR [email or web address] Information n ot available 12/10/2021 What Is The Highest Grade Or Level Of School You Have Completed Or The Highest Degree You Have Received? HV12548-1 [email or web address] Information not available 04/07/2021 Have You Ever Been Counseled For Unhealthy Alcohol Use? No [email or web address] Information not available 06/09/2023 Do You Use Protection During Sex? No [email or web address] Information not available 02/14/2025 Do You Use Your Seat Belt Or Car Seat Routinely? Yes [email or web address] Information not available 04/07/2021 Do You Have Smoke And Carbon Monoxide Detectors In Your Home? Yes [email or web address] Information not available 04/07/2021 How Much Tobacco Do You Smoke? No [email or web address] Information not available 04/07/2021 Do You Use Sunscreen Routinely? Yes [email or web address] Information not available 04/07/2021 Has Tobacco Cessation Counseling Been Provided? No [email or web address] Information not available 06/09/2023 Have You Used IV Drugs? No [email or web address] Information not available 04/07/2021 Do You Have Difficulty Walking Or Climbing Stairs? No [email or web address] Information not available 06/09/2023 Sex: Unknown Functional Status Question Answer Note LastModified by Organizat ion Details LastModified Time Do you use any illicit or recreational drugs? No [email or web address] Information not available 04/07/2021 Do you or have you ever used any other forms of tobacco or nicotine? No [email or web address] Information not available 06/09/2023 What is your level of alcohol consumption? Occasional Information not available 12/10/2021 Are you able to walk independently without assistance or assistive devices? YESWOREST [email or web address] Information not available 04/07/2021 Are you able to care for yourself independently? 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 No [email or web address] Information not available 06/09/2023 What is your exercise level? Moderate [id number] Information not available 05/07/2020 Mental Status Question Answer Note LastModified by Organization D etails LastModified Time Do you feel stressed (tense, restless, nervous, or anxious, or unable to sleep at night)? [id number] [email or web address] Information not available 12/10/2021 Family History Relationship [...] Paternal Grandfather Malignant neoplasm of prostate 70 [email or web address] Not available 05/20 20:17:33 Medical History Condition Response Allergies (Food, seasonal, environmental ) N Other Y Drug/Latex Allergies/Reactions N Blood Transfusion N Breast Cancer N Dermatologic Disorders N Lung Disease N Defects or Inherited Disease N Breast Problem N Gestational Diabetes N Hematologic disorders N Anesthesia Complications N History of STI Y Deep Vein Thrombosis N Polycystic ovary syndrome N Anxiety Disorder N Autoimmune disease N Arthritis N Polyps N Infertility N Acid Reflux (GERD) N History of abnormal pap N Cancer N Varicosities N Stroke N Neurologic/Epilepsy N Endometriosis N High Cholesterol N Fibromyalgia N Headaches N Kidney Disease N Heart Problems N Thyroid Problems N Kidney or Bladder Problems N GI Problems N Eating Disorder [...] ICD10 Code Diagnosis IMO Codes Diagnosis Note [id number] JERED LERMA MD [facility] [address] [address] 04/17/2025 13:58:18 04/17/2025 14:46:46 Urinary symptoms [id number] R39.9 76313 Immune thrombocytopenia 5750969 D69.3 765006 - Plt 129 at 10 weeks- [facility] to take over care, will send transfer Gestation period, 16 weeks 44834369 Z3A.16 [id number] Health Concerns Section Related Observation LastModified by Organization Detai ls LastModified Time None Recorded Concern Status LastModified by Organization Details LastModified Time None Recorded Payers Encounter Date Sequence Insurance Name Policy Number Policy Bowman Covered Member ID Bowman Member ID Guarantor Name 04/17/2025 1 [id number] Wilber Aranda [id number] Paz Aranda Notes Date Note Type Note Provider Name and Address Organization Details Recorded Time 04/17/2025 text/html Generic HPI TemplateReported by Patient JERED LERMA MD [address], [place], [address], [facility] 04/17/2025 14:43:53 OBGyn Episode Ob Episode Information Episode Created Date Number of Fetuses Patient Bloodtype Patient rh Status Prepregnancy Weight lbs Domestic Partner Domestic Partner Phone Father Name Natural Resources Faculty Member Status 03/16/20 25 1 A Positive Wilber TESFAYE Fetus Data First Name Last Name Admitted to NICU Weight (g) Sex Living Outcome Pediatric Complications Fetus ID Race Codes Race Delivery Type [id number] Problems Problem Notes Problem Name Start Date End Date Resolution Snomed Code Not e Immune thrombocytopenia 03/16/2025 08861 05 Plt 129 at 10 weeks Brain [...] Ultra Sound Latest Days Gestation 0 0 Pre- Flowsheet Flowsheet Date 03/16/2025 Quiroz Score Blood Edema Fundus Height Fundus Units Glucose Ketones Leukocytes Nitrite Labor Signs Protein Cervic Dilation Cervic Effacement Cervic Station Type Weight in lbs Pre/Post Dialysis Refused Weight 200.917116943178 BP Diastolic BP Location Tested BP Systolic BP Type 65 L arm 113 sitting Fetus Heart Rate Present A 173 Fetus Movement A No Comments Patient presents to hospital for special surgery care. Hx of ITP, will send MFM [...] Weight in lbs Pre/Post Dialysis Refused Weight 204.797912972503 BP Diastolic BP Location Tested BP Systolic BP Type 68 L arm 114 sitting Fetus Heart Rate Present A 160 Fetus Movement A Yes Comments Doing well, having some dysu petros. Will send urine culture. Patient was seen by MFM at [facility], will plan to deliver there due to ITP. Will transfer all care to [facility]. RTC if needed. Menstrual History Last Menstrual Date Menses Monthly On Bcp Conception Prior Menses Frequency Hcg Plus Date Menarche Onset Age 0612/22/2024 true Genetic Screening And Infection History Question Response Note Mental Retardation/Autism false Patient's Age Will Be 35 Years Or Older At Estim ated Date of Delivery true Thalassemia (Macedonian, Albanian, Mediterranean, Or Background): MCV < 80 false Neural Tube Defect (Meningomyelocele, Spina Bifi da, Or Anencephaly) false Congenital Heart Defect false Down Syndrome false Quinten-Sachs (eg, Sikh, Cajun, [place]) f alse Payam Disease false Sickle Cell Disease Or Trait () false Hemophilia Or Other Blood Disorders false Muscular Dystrophy false Cystic Fibrosis false [place]'s Chorea false Intellectual Disability/Autism false If Yes, [...]
--- OUTSIDE RECORDS SUMMARY | 2025-05-22 02:28 | XMS_ITS | Continuity of Care Document ---
Author Organization [facility] Address [address] [place] [address] [place] [address] Care Team Providers Care Business Performance Specialist Name Role Phone EDISJESÚSCARLTON SELFIA Primary Care Provider Assessment No assessment recorded. Plan of Treatment Reminders Order Date Submit Date Provider Last Modified By Organization Details Last Modified Time Details Appointments None recorde d. Lab drug screen, urine 025 03/16/[address] [facility] [address], [address], [place], [address], 5 10:44:58 culture , urine 025 03/16/20 25 [facility] (Lab), [address], [place], [address], 5 23:58:41 Referral None recorde d. Procedures None recorde d. Surgeries None recorde d. Imaging None recorde d. Medication Orders None recorde d. Patient TargetsNo targets recorded. Patient InstructionsNo instructions recorded. Reason for Referral None Reported. Results Created Date Observation Date Name Description Value Unit Range Abnormal Flag Note LastModifiedBy Organization Detail LastModifiedTime 03/16/20 25 03/16/2025 CULTU RE: URINE result report SEE RESULT S BELOW Test: Cultu re: Urine Speci men Sourc e: Urine - Clean Catch Speci men Type: Urine Speci men Date: 2024 1002 Resul t Date: 2024 2254 Resul t Statu s: Final resul t Abnor mal: No Resul ting Lab: [facility] [address] [facility] [address] Tel: CULTU RE ----- ----- ----- --- No growt h in 1 day (dete ction level of 10,00 0 colon ies / ml.) Not Available [facility] (Lab) [address], [place], [address], 03/17/2025 23:58:41 03/16/20 25 03/16/2025 drug scree n, urine Amphetamines : negati ve Not Available [facility] [address], [place], [address], 03/16/2025 10:41:30 03/16/20 25 03/16/2025 drug scree n, urine Cannabinoids : negati ve Not Available [facility] [address], [place], [address], 03/16/2025 10:41:30 03/16/20 25 03/16/2025 drug scree n, urine Cocaine: negati ve Not Available [facility] [address], [place], [address], 03/16/2025 10:41:30 03/16/20 25 03/16/2025 drug scree n, urine Opiates: negati ve Not Available [facility] [address], [place], [address], 03/16/2025 10:41:30 03/16/20 25 03/16/2025 drug scree n, urine Phenocyclidi ne: negati ve Not Available [facility] [address], [place], [address], 03/16/2025 10:41:30 03/16/20 25 03/16/2025 drug scree n, urine Barbiturates : negati ve Not Available [facility] [address], [place], [address], 03/16/2025 10:41:30 03/16/20 25 03/16/2025 drug scree n, urine Benzodiazepi mauricio: negati ve Not Available [facility] [address], [place], [address], 03/16/2025 10:41:30 03/16/20 25 03/16/2025 drug scree n, urine Ethanol: negati ve Not Available [facility] [address], [place], [address], 03/16/2025 10:41:30 03/16/20 25 03/16/2025 drug scree n, urine Hallucinogen s: negati ve Not Available [facility] [address], [place], [address], 03/16/2025 10:41:30 03/16/20 25 03/16/2025 drug scree n, urine Inhalants: negati ve Not Available [facility] [address], [place], [address], 03/16/2025 10:41:30 03/16/20 25 03/16/2025 drug scree n, urine Anabolic Steroids: negati ve Not Available [facility] [address], [place], [address], 03/16/2025 10:41:30 03/16/20 25 03/16/2025 US, obste tric, nucha l trans lucen cy No observ ation record ed. [facility] [address], [place], [address], 03/16/2025 17:07:46 03/16/20 25 03/16/2025 US, obste tric, nucha l trans lucen cy No observ ation record ed. [email or web address] [address], [place], [address], 03/16/2025 13:53:28 Result Notes None recorded. Problems Name Problem SNOMED Code Status Onset Date Resolution Date Notes Provider Name and Address Organization Details Recorded Time Abnormal transluc ency 42258816 Completed thickene d 4mm, [facility] [place] 05/09 - LII U/S, MFM & genetic counseli - rec echo, rpt u/s, and discusse d NIPS. declined [facility] and amnio Level II u/s & office visit 05/28 - [facility] to schedule echo at 05/28 appt Tereza bolden [facility] 2 16:03:19 Benign gestatio nal thromboc ytopenia 142644533 Completed h/o last pregnanc y - M 05/28/21 . Check monthly - last done 06/23 Tereza bolden [facility] 2 16:03:[address] Concept Completed 201504/04/2021 Encntr for legal billing coordinator exam (general ) (routine ) w/o abn findings ;Recorde d Elsewher e: No Locat ion: [facility] S ource: EHR It Business Analyst tavon: N Maikel ce ID: 0001 Jimy lable Time: 01:00:00 PM Erika Salguero [facility] 1 09:36:46 Uses combined oral contrace ption [id number] Completed 201504/04/2021 Encounte r for initial prescrip tion of contrace ptive pills;Re corded Elsewher e: No Locat ion: [facility] S ource: EHR It Business Analyst tavon: N Maikel ce ID: 0001 Jimy lable Time: 01:00:00 PM Erika Salguero [facility] 1 09:36:43 Syphilis test finding 804084095 Completed 201504/04/2021 Encntr screen for infectio ns w sexl mode of transmis s;Record ed Elsewher e: No Locat ion: Willow steele [facility] S ource: EHR It Business Analyst tavon: N Practi ce ID: 0001 Jimy lable Time: 01:00:00 PM Erika newberry, [facility] 09:38:47 Infectio n screenin g Completed 201504/04/2021 Encounte r for screenin g for oth infec/pa rastc diseases ;Recorde d Elsewher e: No [facility] S ource: EHR It Business Analyst tavon: N Practi ce ID: 0001 Jimy lable Time: 01:00:00 PM Erika newberry, [facility] 09:36:42 Screenin g for malignan t neoplasm of cervix Completed 201504/04/2021 Screenin g for malignan t neoplasm s of the cervix;R ecorded Elsewher e: No [facility] S ource: EHR It Business Analyst tavon: N Practi ce ID: 0001 Jimy lable Time: 01:00:00 PM Erika newberry, [facility] 09:36:37 Body mass index 25-29 - overweig 586251697 Completed 201504/04/2021 Body mass index (BMI) 29.0-29. 9, adult;Re corded Elsewher e: No [facility] S ource: EHR It Business Analyst tavon: N Practi ce ID: 0001 Jimy lable Time: 01:00:00 PM Erika newberry, [facility] 09:36:35 Dyspareu amaya 54220064 Completed 201504/04/2021 Dyspareu amaya;Ag rded Elsewher e: No [facility] S ource: EHR It Business Analyst tavon: N Practi ce ID: 0001 Jimy lable Time: 10:15:00 AM Erika newberry, [facility] 09:38:56 Procedur e by method Completed 201604/04/2021 Encounte r for other general counseli ng and advice on contrace ption;Re corded Elsewher e: No Locat ion: [facility] S ource: EHR It Business Analyst tavon: N Practi ce ID: 0001 Jimy lable Time: 01:15:00 PM Erika newberry, [facility] 09:36:[address] Concept Completed 201604/04/2021 Encntr for general adult medical exam w/o abnormal findings ;Recorde d Elsewher e: No Locat ion: [facility] S ource: EHR It Business Analyst tavon: N Practi ce ID: 0001 Jimy lable Time: 01:15:00 PM Erika newberry, [facility] 09:36:45 Procedur e Completed 201704/04/2021 Enctr srvlnc implanta ble subderma l contrace ptive;Pr actice ID: 0001 Erika newberry, [facility] 09:36:[address] Concept Completed 201704/04/2021 Encounte r for surveill ance of other contrace ptives;R ecorded Elsewher e: No Locat ion: [facility] S ource: EHR It Business Analyst tavon: N Practi ce ID: 0001 Jimy lable Time: 01:00:00 PM Erika newberry, [facility] 09:37:04 Pregnanc y detectio n examinat ion Completed 201804/04/2021 Encounte r for pregnanc y test, result positive ;Recorde d Elsewher e: No Locat ion: [facility] S ource: EHR It Business Analyst tavon: N Practi ce ID: 0001 Jimy lable Time: 03:30:00 PM Erika newberry [facility] 09:38:59 Gestatio n period, 10 weeks [id number] Completed 201804/04/2021 10 weeks gestatio n of pregnanc y;Record ed Elsewher e: No Locat ion: [facility] S ource: EHR It Business Analyst tavon: N Practi ce ID: 0001 Jimy lable Time: 03:30:00 PM Erika newberry [facility] 09:37:11 Antenata l screenin g Completed 201804/04/2021 Encounte r for other specifie d antenata l screenin g;Record ed Elsewher e: No Locat ion: [facility] S ource: EHR It Business Analyst tavon: N Practi ce ID: 0001 Jimy lable Time: 05:00:00 PM Erika newberry [facility] 1 09:36:40 Pregnanc y, childbir th and puerperi um finding Completed 201804/04/2021 Encntr for suprvsn of normal first preg, second trimeste r;Practi ce ID: 0001 Erika newberry, [facility] 09:37:07 Pregnanc y, childbir th and puerperi um finding Completed 201804/04/2021 Encounte r for supervis ion of normal 1st pregnanc y;Record ed Elsewher e: No Locat ion: [facility] S ource: EHR It Business Analyst tavon: N Practi ce ID: 0001 Jimy lable Time: 05:00:00 PM Erika newberry [facility] 09:37:05 Antenata l screenin g for malforma tion Completed 201804/04/2021 Encounte r for antenata l screenin g for malforma tions;Re corded Elsewher e: No Locat ion: [facility] S ource: EHR It Business Analyst tavon: N Practi ce ID: 0001 Jimy lable Time: 04:00:00 PM Erika Salguero rohith, [facility] 09:38:58 Pregnanc y, childbir th and puerperi um finding Completed 201904/04/2021 Encntr for suprvsn of normal first preg, third trimeste r;Record ed Elsewher e: No Locat ion: [facility] S ource: EHR It Business Analyst tavon: N Practi ce ID: 0001 Jimy lable Time: 02:30:00 PM Erika Doran rohith, [facility] 09:37:09 Normal pregnanc y in multigra kim [id number] Completed 201904/04/2021 Encounte r for suprvsn of normal pregnanc y, third trimeste r;Practi ce ID: 0001 Erika Jose M rohith, [facility] 09:38:53 Finding of trunk structur e Completed 201904/04/2021 Oth diseases and conditio ns compl preg/chl dbrth;Pr actice ID: 0001 Erika Salguero rohith, [facility] 09:36:39 Gestatio n period, 37 weeks [id number] Completed 201904/04/2021 37 weeks gestatio n of pregnanc y;Practi ce ID: 0001 Erika Jose M newberry, [facility] 09:38:50 Pregnanc y 84142961 Completed 202011/04/2021 Donna newberry, [facility] 5 10:25:05 Pregnanc y 57159848 Active 2024 Donna newberry [facility] 5 10:25:05 Immune thromboc ytopenia 4300653 Active 2024 Plt 129 at 10 weeks JERED LERMA MD [address], [place], [address], [facility] 5 10:54:27 Notes:Hx gestational thrombo cytopenia. MFM U/S & OV 05/28 Problem Notes None recorded. Procedures Surgical History Date Name Laterality Status Provider Name and Address Organization Details Recorded Time 04/07/20 21 Date of Last Pap Smear completed Rosa Deleon [facility] 02/14/2025 12:41:37 07/05/19 07 extraction of wisdom tooth completed [facility] 05/08/2022 10:19:08 07/05/19 02 adenomyomectomy completed [facility] 05/08/2022 10:18:57 Imaging Results None recorded. Procedure Notes None recorded. Medical Equipment None Reported. Allergies Allergen ID Allergen Name Allergen Category Reaction Reaction Severity Criticality Documentation Date Start Date Code Code System Note Provider Name and Address Organization Details Recorded Time 508 amoxicill in medicatio n hives Not available Not available 11/10/2019 723 RxNorm Elisa Gold [facility] 0 12:44:51 509 codeine medicatio n hives Not available Not available 11/10/2019 2670 RxNorm Elisa Gold [facility] 0 12:45:06 Medications Name Sig Start [...] Prescrib ed Elsewher e: No [facility] odify By: naeem Gilliam r DateTime : [...] Prescrib ed Elsewher e: No [facility] odify By: sandra bermudez DateTime : 03/25/20 01:45:00 PM Not Available Not Available Not Available 28 mg-800 mcg tablet 04/04 completed Prescrib ed Elsewher e: Yes [facility] odify By: janet hughes DateTime : 05/25/20 05:00:00 PM Not Available Not Available Not Available COVID-19 test specimen collectio n TEST DIRECTED TODAY 06/23 completed Not Available Not Available Not Available Vitals Date Recorded Body height Body mass index (BMI) Body weight Systolic And Diastolic Provider Name and Address Organization Details Last Updated DateTime 03/16/2025 172.72 cm 30.4 kg/m2 25064.47 g 113/65 mm[Hg] Donna Gay [facility] 03/16/2025 10:24:42 Social History Question Answer Notes LastModified by Organizat ion Details LastModified Time Tobacco Smoking Status Never Smoker Marissa newberry [facility] 06/09/2023 15:00:53 If You Are , What Was Your Level Of Alcohol Consumption Prior To ? Occasional [email or web address] Information not available 06/09/2023 Are You Blind Or Do You Have Difficulty Seeing? No [email or web address] Information n ot available 04/07/2021 What Is Your Level Of Caffeine Consumption? Occasional [email or web address] Information not available 12/10/2021 In The 14 Days Before Symptom Onset, Have You Had Close Contact With A Laboratory-confirm ed COVID-19 While That Case Was Ill? No [email or web address] Information n ot available 12/10/2021 In The 14 Days Before Symptom Onset, Have You Had Close Contact With A Person Who Is Under Investigation For COVID-19 While That Person Was Ill? No [email or web address] Information not available 12/10/2021 Have You Been To An Area Known To Be High Risk For COVID-19? No [email or web address] Information not available 04/07/2021 Are You Deaf Or Do You Have Serious Difficulty Hearing? No [email or web address] Information not available 04/07/2021 What Type Of Diet Are You Following? REGULAR [email or web address] Information n ot available 12/10/2021 What Is The Highest Grade Or Level Of School You Have Completed Or The Highest Degree You Have Received? [id number] [email or web address] Information not available 04/07/2021 Have You Ever Been Counseled For Unhealthy Alcohol Use? No [email or web address] Information not available 06/09/2023 Do You Use Protection During Sex? No [email or web address] Information not available 02/14/2025 Do You Use Your Seat Belt Or Car Seat Routinely? Yes [email or web address] Information not available 04/07/2021 Do You Have Smoke And Carbon Monoxide Detectors In Your Home? Yes [email or web address] Information not available 04/07/2021 How Much Tobacco Do You Smoke? No [email or web address] Information not available 04/07/2021 Do You Use Sunscreen Routinely? Yes Information not available 04/07/2021 Has Tobacco Cessation Counseling Been Provided? No [email or web address] Information not available 06/09/2023 Have You Used IV Drugs? No [email or web address] Information not available 04/07/2021 Do You Have Difficulty Walking Or Climbing Stairs? No [email or web address] Information not available 06/09/2023 Sex: Unknown Functional Status Question Answer Note LastModified by Organizat ion Details LastModified Time Do you use any illicit or recreational drugs? No [email or web address] Information not available 04/07/2021 Do you or have you ever used any other forms of tobacco or nicotine? No [email or web address] Information not available 06/09/2023 What is your level of alcohol consumption? Occasional [email or web address] Information not available 12/10/2021 Are you able to walk independently without assistance or assistive devices? YESWOREST [email or web address] Information not available 04/07/2021 Are you able to care for yourself independently? 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 No [email or web address] Information not available 06/09/2023 What is your exercise level? Moderate [id number] Information not available 05/07/2020 Mental Status Question Answer Note LastModified by Organization D etails LastModified Time Do you feel stressed (tense, restless, nervous, or anxious, or unable to sleep at night)? [id number] [email or web address] Information not available 12/10/2021 Family History Relationship [...] Paternal Grandfather Malignant neoplasm of prostate 70 [email or web address] Not available 05/20 20:17:33 Medical History Condition Response Other Y Blood Transfusion N Dermatologic Disorders N Gestational Diabetes N Anxiety Disorder N Autoimmune disease N Arthritis N Polyps N Infertility N Acid Reflux (GERD) N Cancer N Varicosities N Stroke N Neurologic/Epilepsy N Fibromyalgia N Headaches N Kidney Disease N Heart Problems N Kidney or Bladder Problems N Eating Disorder N Art (IVF or FET) N Hepatitis/Liver Disease N No Past Medical History N Urinary Tract Infection N Asthma N Trauma/Violence N Thrombophilias Y Allergies (Food, seasonal, environmental ) N Breast Cancer N Drug/Latex Allergies/Reactions N Lung Disease N Defects or Inherited Disease N Breast Problem N Hematologic disorders N Anesthesia Complications N History of STI Y Deep Vein Thrombosis N Polycystic ovary syndrome N History of abnormal pap N Endometriosis N High Cholesterol N Thyroid Problems N GI Problems N Anemia N Psychiatric Illness N Ovarian Cancer N Diabetes N Pulmonary (TB, Asthma) N Eczema N Abuse/Domestic Violence N Depression/ depression N Heart Disease N Pre-Eclampsia N Hypertension N Osteoporosis N Gynecological History Statement/Question Response Abnormal Pap N [...] ICD10 Code Diagnosis IMO Codes Diagnosis Note [id number] JERED LERMA MD [facility] [address] [address] 02/14/2025 11:49:35 02/14/2025 12:17:36 [id number] JERED LERMA MD [facility] [address] [address] 02/14/2025 11:50:08 02/14/2025 13:06:43 test positive 908723568 Z32.01 [id number] 1. Exam today within normal limits.2. Ultrasound today confirms GA and viability. EDC . GC/Clamydi a testing done: will f/u as indicated. 4. ACOG guidelines and plan of care for reviewed with patient. All questions answered.5 . Return to office at 12 weeks for new OB visit6. Will need new OB labs at next visit.7. Genetic screening: desires at 10 weeks. screening 2437 17624 Z36.89 Genetic in vestigation procedure 08401682 Z31.430 [id number] JERED LERMA MD [facility] [address] [address] 03/16/2025 09:48:15 03/16/2025 10:27:10 screening 772441821 Z36.82 Z3A.12 263619 [id number] JERED LERMA MD [facility] [address] [address] 03/16/2025 09:50:10 03/16/2025 11:55:25 Gestation period, 12 weeks 49331338 Z3A.12 4011392 Immune thrombocytopenia 0039005 D69.3 [id number] - Plt 129 at 10 weeks- MFM consult Health Concerns Section Related Observation LastModified by Organization Detai ls LastModified Time None Recorded Concern Status LastModified by Organization Details LastModified Time None Recorded Payers Encounter Date Sequence Insurance Name Policy Number Policy Bowman Covered Member ID Bowman Member ID Guarantor Name 03/16/2025 1 [employer] [id number] Wilber Aranda [id number] 2 Paz Aranda OBGyn Episode Ob Episode Information Episode Created Date Number of Fetuses Patient Bloodtype Patient rh Status Prepregnancy Weight lbs Domestic Partner Domestic Partner Phone Father Name Color Sprayer Status 03/16/20 25 1 A Positive Wilber TESFAYE Fetus Data First Name Last Name Admitted to NICU Weight (g) Sex Living Outcome Pediatric Complications Fetus ID Race Codes Race Delivery Type [id number] Problems Problem Notes Problem Name Start Date End Date Resolution Snomed Code Not e Immune thrombocytopenia 03/16/2025 35491 05 Plt 129 at 10 weeks Brain [...] Weight in lbs Pre/Post Dialysis Refused Weight 200.206736505241 BP Diastolic BP Location Tested BP Systolic BP Type 65 L arm 113 sitting Fetus Heart Rate Present A 173 Fetus Movement A No Comments Patient presents to [facility] care. Hx of ITP, will send [...] Weight in lbs Pre/Post Dialysis Refused Weight 204.483291037793 BP Diastolic BP Location Tested BP Systolic BP Type 68 L arm 114 sitting Fetus Heart Rate Present A 160 Fetus Movement A Yes Comments Doing well, having some dysu petros. Will send urine culture. Patient was seen by MFM at [facility], will plan to deliver there due to ITP. Will transfer all care to [facility]. RTC if needed. Menstrual History Last Menstrual Date Menses Monthly On Bcp Conception Prior Menses Frequency Hcg Plus Date Menarche Onset Age 0612/22/2024 true Genetic Screening And Infection History Question Response Note Mental Retardation/Autism false Patient's Age Will Be 35 Years Or Older At Estim ated Date of Delivery true Thalassemia (Nepalese, Moroccan, Mediterranean, Or Background): MCV < 80 false Neural Tube Defect (Meningomyelocele, Spina Bifi da, Or Anencephaly) false Congenital Heart Defect false Down Syndrome false Quinten-Sachs (eg, Methodist, Cajun, Citizen Of [place]-Burkinan) f alse Payam Disease false Sickle Cell Disease Or Trait () false Hemophilia Or Other Blood Disorders false Muscular Dystrophy false Cystic Fibrosis false Cygnet's Chorea false Intellectual Disability/Autism false If Yes, [...]
== END 2025-05-21 21:49 | disposition left against medical advice (07) ==
LOC: ANHED 21:24
PROVIDERS: PCP Internal Medicine
DX: S19.9XXA Unspecified injury of neck, initial encounter (principal); V44.5XXA Car driver injured in collision with heavy transport vehicle or bus in traffic accident, initial encounter
CPT/HCPCS: 99199

== ENCOUNTER 2025-05-25 09:33 | Outpatient (CLI) | payer OTHER, SELFPAY ==
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
--- OUTSIDE RECORDS SUMMARY | 2025-05-25 09:40 | XMS_ITS | Clinical Summary ---
Author Organization [facility] Cirilo pelaez [facility] Address [address] [address] Care Team Providers Care Cna Gna Name Role Phone Cece Riley MD Primary Care Provider [phone] Allergies Active Allergy Reactions Criticality Noted Date Comments Codeine Rash,Hives High 10/21/2017 Penicillins Hives,Rash High 10/21/2017 Reaction: Hives, Medications Vit-Iron Fumarate-FA 65 mg iron- 1 mg Capsule Take 1 Tablet by mouth daily. 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 Family History Medical History Relation Name Comments Healthy Brother Healthy Daughter Healthy Father Healthy Mother Relation Name Status Comments Brother Alive Daughter Alive Father Alive Mother Alive Social History Tobacco Use Types Packs/Day Years Used Date Smoking Tobacco: Never Smokeless Tobacco: Never Alcohol Use Standard Drinks/Week Comments Yes 0 (1 standard drink = 0.6 oz pur e alcohol) Comments Unknown Sex and Gender Information Value Date Recorded Sex Assigned at Not on file Legal Sex Female 3:19 PM CDT Gender Identity Not on file Sexual Orientation Not on file Last Filed Vital Signs Vital Sign Reading Time Taken Comments Blood Pressure 124/80 12/24/2020 3:00 PM CDT Pulse 69 12/24/2020 3:00 PM CDT Temperature 36.3 C (97.3 F) 12/24/2020 3:00 PM CDT Respiratory Rate - - Oxygen Saturation 99% 12/24/2020 3:00 PM CDT Inhaled Oxygen Concentration - - Weight 86.7 kg (191 lb 1.6 oz) 12/24/2020 3:00 P M CDT Height 172.7 cm (5' 8) 12/24/2020 3:00 PM CDT Body Mass Index 29.06 12/24/2020 3:00 PM CDT Plan of Treatment Health Maintenance Due Date Last Done Comments HEPATITIS B VACCINES (1 of 3 - 19+ 3-dose series) 01/2009 HPV/Cotest (21-29) 2010 HPV VACCINES (1 - 3-dose SCDM series) 2016 CERVICAL CANCER SCREENING 12/10/2019 HPV/Cotest (30-65) 12/10/2019 PAP SMEAR 12/10/2019 INFLUENZA VACCINE (#1) 2025 04/19/2019 DTAP/TDAP/TD VACCINES (2 - Td or Tdap) 08/09/2029 Insurance [employer] Care Teams Cna Gna Relationship Specialty Start Date End Date Cece Riley MD PCP - General Family Practice 12/24/20
--- OUTSIDE RECORDS SUMMARY | 2025-05-25 09:40 | XMS_ITS | Encounter Summary ---
Author Organization [facility] Health Address [address] [place] [place] [address] Care Team Providers Care Material Damage Adjuster Name Role Phone Glendy Ochoa MD Primary Care Provider [phone] Encounter Details Date Type Department Care Team (Late Contact Info) Description 05/19/2019 Lab Requisition [facility] [address] [facility], [place] [address] Sabrina Reynolds MD [address] [facility] 3 [place] [address] Social History Tobacco Use Types Packs/Day Years Used Date Smoking Tobacco: Never Assessed Comments Unknown Sex and Gender Information Value Date Recorded Sex Assigned at Not on file Legal Sex Female 1:41 PM TARE MAN Gender Identity Not on file Sexual Orientation Not on file documented as of this encounter Plan of Treatment Upcoming Encounters Date Type Department Care Team (Late Contact Info) Description 06/07/2025 9:30 AM TARE MAN Procedure visit [facility] - FORM TAMPER OPERATOR [address] [place] [phone] 06/07/2025 10:30 AM TARE MAN visit [facility] - FORM TAMPER OPERATOR [address] [place] [phone] Anya Sherman APRN-LIFE MANAGEMENT TEACHER [address] [place] [address] 07/06/2025 9:30 AM TARE MAN Procedure visit [facility] - FORM TAMPER OPERATOR [address] [facility] [address] [place] [address] 07/06/2025 10:40 AM TARE MAN visit [facility] - FORM TAMPER OPERATOR [address] [facility] [address] [place] [address] documented as of this encounter Procedures Procedure Name Priority Date/Time Associated Diagnosis Comments DERMATOPATHOLOGY Routine 05/18/2019 12:0 0 AM TARE MAN documented in this encounter Results * DERMATOPATHOLOGY (05/18/2019 12:00 AM TARE MAN) Case Report Dermatopathology Report Case: [id number] Authorizing Provider: Sabrina Reynolds MD Collected: 05/18/2019 12:00 AM Ordering Location: [facility] Received: 05/19/2019 12:43 PM Pathologist: Allie Bray MD Specimen: Skin, left neck 3:29 PM [facility] Final Diagnosis Specimen A. SKIN, left neck: EPIDERMOID CYST (L72.0) 3:29 PM [facility] at [address] TARE MAN Clinical History Cyst. Hx MM, cystic nodule, growing. 3:29 PM [facility] Gross Description Specimen A: Received is one formalin filled container labeled with the patient's name and designated left neck. The specimen consists of a shave measuring [id number], bisected. Jar 0. 3:29 PM [facility] Microscopic Description Specimen A. SKIN, left neck: Within the dermis, there is a space lined by epithelium that resembles normal epidermis and the infundibular portion of the hair follicle. 3:29 PM [facility] Disclaimer An external and internal positive and negative controls are appropriate for the histochemical, immunohistochemical and immunofluorescence stain(s) in this case (if any), except where stated explicitly. The performance characteristics of the stain(s) cited in this report were developed and its performance characteristic determined by the Dermatopathology Laboratory at [facility], directed by Dr. Taryn Morillo. These tests need not be, and therefore are not, approved by the [place] Food and Drug Administration. The tests are used for clinical purposes. Billing Codes Specimen Charges Stain Charges 60786 1 9 3:29 PM [facility]ERMATOPATHOLOGY LABORATORY Embedded Images 9 3:29 PM [facility] Pathology/Cytolog y TISSUE SPECIMEN FROM SKIN / Unknown 05/18/2019 05/19/2019 12:43 PM TARE MAN Sabrina Reynolds MD LAB - PATHOLOGY/CYTOLOGY ORD ERABLES Final Result DERMATOPATHOLOGY LABORATORY [facility] - Department of Dermatology [address] [place] [address] 5th Floor Lab [address] [phone] documented in this encounter Visit Diagnoses Not on filedocumented in this encounter Care Teams Material Damage Adjuster Relationship Specialty Start Date End Date Glendy Ochoa MD [address] [place] [address] PCP - General 09/12/19 documented as of this encounter
--- OUTSIDE RECORDS SUMMARY | 2025-05-25 09:40 | XMS_ITS | Encounter Summary ---
Author Organization [facility] Health Address [address] [facility] [place] [address] Care Team Providers Care Sql Tech Name Role Phone Glendy Ochoa MD Primary Care Provider [phone] Encounter Details Date Type Department Care Team (Late Contact Info) Description 05/13/2018 Lab Requisition [facility] [address] [facility] [place] [phone] Sabrina Reynolds MD [address] [facility] 3 DE[place] [address] Social History Tobacco Use Types Packs/Day Years Used Date Smoking Tobacco: Never Assessed Comments Unknown Sex and Gender Information Value Date Recorded Sex Assigned at Not on file Legal Sex Female 1:41 PM ENVIRONMENTAL TECHNOLOGY PROFESSOR Gender Identity Not on file Sexual Orientation Not on file documented as of this encounter Plan of Treatment Upcoming Encounters Date Type Department Care Team (Late Contact Info) Description 06/07/2025 9:30 AM ENVIRONMENTAL TECHNOLOGY PROFESSOR Procedure visit [facility] - CLAIMS ATTORNEY [address] [place] [phone] 06/07/2025 10:30 AM ENVIRONMENTAL TECHNOLOGY PROFESSOR visit [facility] - CLAIMS ATTORNEY [address] [place] [phone] Anya Sherman APRN-MUNITIONS HANDLER [address] [place] [address] 07/06/2025 9:30 AM ENVIRONMENTAL TECHNOLOGY PROFESSOR Procedure visit [facility] - CLAIMS ATTORNEY [address] [place] [address] 07/06/2025 10:40 AM ENVIRONMENTAL TECHNOLOGY PROFESSOR visit [facility] - CLAIMS ATTORNEY [address] [place] [address] documented as of this encounter Procedures Procedure Name Priority Date/Time Associated Diagnosis Comments DERMATOPATH TECHNICAL REPORT Routine 05/12/2018 12:00 AM ENVIRONMENTAL TECHNOLOGY PROFESSOR documented in this encounter Results * DERMATOPATH TECHNICAL REPORT (05/12/2018 12:00 AM ENVIRONMENTAL TECHNOLOGY PROFESSOR) Case Report Dermatopathology Report Case: [id number] Authorizing Provider: Sabrina Reynolds MD Collected: 05/12/2018 12:00 AM Pathologist: Maru George MD Received: 05/13/2018 07:12 AM Specimen: Skin, left buttock 8 6:20 PM [facility] Clinical History Nevus, less MM. Family hx of MM. 8 6:20 PM [facility] DERMATOPATH[facility]Y [facility]ORATORY Gross Description Specimen A: Received is one formalin filled container labeled with the patient's name and designated left buttock. The specimen consists of a shave measuring [id number]. Jar 0. [facility] Dermatopathology [facility] performed the technical component only. 8 6:20 PM [facility] DERMATOPATH[facility]Y [facility]ORATORY Embedded Images 8 6:20 PM [facility]MAT[facility] DISCLAIMER An external and internal positive and negative controls are appropriate for the histochemical, immunohistochemical and immunofluorescence stain(s) in this case (if any), except where stated explicitly. The performance characteristics of the stain(s) cited in this report were developed and its performance characteristic determined by the Dermatopathology Laboratory at [facility]. These tests need not be, and therefore are not, approved by the [place] Food and Drug Administration. The tests are used for clinical purposes. 8 6:20 PM [facility] DERMATOPATHOLOGY [facility]ORATORY at [address] ENVIRONMENTAL TECHNOLOGY PROFESSOR Pathology/Cytolog y TISSUE SPECIMEN FROM SKIN / Unknown 05/12/2018 05/13/2018 7:12 AM ENVIRONMENTAL TECHNOLOGY PROFESSOR us Sabrina Reynolds MD LAB - PATHOLOGY/CYTOLOGY ORD ERABLES Final Result DERMATOPATHOLOGY LABORATORY [facility] - Department of Dermatology [employer] 5th Floor Lab [address] [phone] documented in this encounter Visit Diagnoses Not on filedocumented in this encounter Care Teams Sql Tech Relationship Specialty Start Date End Date Glendy Ochoa MD [address] [place] [address] PCP - General 09/12/19 documented as of this encounter
--- OUTSIDE RECORDS SUMMARY | 2025-05-25 09:40 | XMS_ITS | Clinical Summary ---
Author Organization [facility] Building [facility] Address [address] [place] [address] Care Team Providers Care Student Ministries Director Name Role Phone Cece Riley MD Primary Care Provider Elisa Cagle MD Unavailable [phone] Allergies Active Allergy Reactions Criticality Noted Date Comments Amoxicillin Rash Medium 10/21/2017 Codeine Rash Medium 10/21/2017 Penicillins Hives Reaction: Hives, Medications etonogestrel-et hinyl estradiol (NUVARING) 0.12-0.015 mg/24 hr vaginal ring Insert 1 each into the vagina every 28 (twenty-eight) days. Insert vaginally and leave in place for 3 consecutive weeks, then remove for 1 week. Active Active Problems Problem Noted Date Diagnosed Date Left knee pain 10/21/2017 Surgical History Surgery Date Site/Laterality Comments OTHER SURGICAL HISTORY Adenoictomy OTHER SURGICAL HISTORY Adenoictomy Social History Tobacco Use Types Packs/Day Years Used Date Smoking Tobacco: Never Smokeless Tobacco: Never Alcohol Use Standard Drinks/Week Comments Yes 0 (1 standard drink = 0.6 oz pur e alcohol) Comments Unknown Sex and Gender Information Value Date Recorded Sex Assigned at Not on file Legal Sex Female 1:39 AM MEASUREMENT DEPARTMENT CHIEF CLERK Gender Identity Not on file Sexual Orientation Not on file Last Filed Vital Signs Vital Sign Reading Time Taken Comments Blood Pressure 135/89 10/21/2017 1:09 PM CDT Pulse 99 10/21/2017 1:09 PM CDT Temperature - - Respiratory Rate - - Oxygen Saturation - - Inhaled Oxygen Concentration - - Weight 79.4 kg (175 lb) 10/22/2017 5:05 PM CDT Height 172.7 cm (5' 8) 10/21/2017 1:09 PM CDT Body Mass Index 26.61 10/21/2017 1:09 PM CDT Plan of Treatment Not on file Insurance [employer] Care Teams Student Ministries Director Relationship Specialty Start Date End Date Cece Riley MD [address] [facility] [address] [place] [address] PCP - General Family Medicine 10/07/17 Elisa Cagle MD [address] [place] [address] JEREMIE HODGE [id number] 10/07/17
== END 2025-05-25 09:34 | disposition home or self-care (01) ==
LOC: ANHIMG 09:38
PROVIDERS: PCP Internal Medicine; Visit Provider Internal Medicine
DX: O9A.212 Injury, poisoning and certain other consequences of external causes complicating pregnancy, second trimester (principal); V49.9XXA Car occupant (driver) (passenger) injured in unspecified traffic accident, initial encounter; Z3A.22 22 weeks gestation of pregnancy; M25.511 Pain in right shoulder; M54.2 Cervicalgia; M25.512 Pain in left shoulder; M54.9 Dorsalgia, unspecified
CPT/HCPCS: 72040; 72070